=== PATIENT | female | born 1980 | race Caucasian/White ===

== ENCOUNTER → 2022-07-12 14:39 | Outpatient (BNVA) | payer BC, SELFPAY | PROVIDERS: PCP Family Medicine; Visit Provider Physician Assistant Surgical | DX: E66.9 Obesity, unspecified (principal) ==

== ENCOUNTER 2024-12-22 14:24 | Emergency (ER) | payer BC, SELFPAY ==
[2024-12-22 14:39] VITALS: BP 126/83; PULSE 91; RESP 18; TEMP 36.7; O2SAT 100; BMI 29.3
--- NOTE | 2024-12-22 14:49 | ED.GENADULT ---
HPI - General Adult General Chief complaint: Wound/Laceration Stated complaint: lac on toe Time Seen by Provider: 12/22/24 14:49 Source: patient Mode of arrival: ambulatory Limitations: no limitations History of Present Illness ED Provider: christopher munoz np HPI narrative: Patient is a 44 year old female who presents emergency department for evaluation. She was outdoors today, cutting up some onions to have burgers, knife accidentally slipped out of her hand dropping down to the floor sustaining accidental laceration to the right great toe inferior to the MTP. No active bleeding. No use of anticoagulants or known coagulation disorders. Unaware of the date of last tetanus vaccination Related Data Home Medications ?Medication ?Instructions ?Recorded ?Confirmed dextroamphetamine-amphetamine ER 5 5 mg PO DAILY 07/12/22 07/12/22 mg 24hr capsule,extend release (Adderall XR) escitalopram oxalate 5 mg tablet 5 mg PO DAILY 07/12/22 07/12/22 (Lexapro) lorazepam 0.5 mg tablet 1 mg PO DAILY PRN 07/12/22 07/12/22 Allergies Allergy/AdvReac Type Severity Reaction Status Date / Time Penicillins (PENICILLINS) Allergy Unknown UNKNOWN Verified 12/22/24 14:46 Review of Systems Review of Systems: Yes all other systems are reviewed and are negative [facility] Past Medical History Attestation statement: The following information was validated with the patient. Source: old records reviewed Surgical History Hx of unilateral salpingectomy Family History Family History (Updated 07/12/22 @ 15:25 by SUZANNE Fitzgerald) Mother Thyroid disease Kidney disease Father Parkinson disease Sister No problems noted. Sister No problems noted. Brother No problems noted. Social History Social History (Updated 07/12/22 @ 15:24 by SUZANNE Fitzgerald) Alcohol intake: current Alcohol intake frequency: a few times a week Patient Tobacco Use Status: Never used Tobacco Advance Directives: No Advance Directives Information Provided: Yes Do you have a plan to hurt others: No Plan Physical Exam ED Vital Signs: Vital Signs - 24 hr 12/22/24 14:39 12/22/24 17:09 Temperature 98.1 F 98.1 F Pulse Rate 91 91 Respiratory Rate 18 18 Blood Pressure 126/83 126/83 Pulse Oximetry 100 100 Oxygen Delivery Method Room Air Room Air BMI result Body Mass Index 29.3 Appearance: Alert.?Oriented to person, place and time. No acute distress.?Normal affect. CVS: Heart sounds normal. Normal heart rate and rhythm.? Pulses normal.?? Respiratory: No respiratory distress.? Lung sounds clear to auscultation bilaterally??? Skin: Skin warm and dry.? Normal skin color.? 3 cm linear laceration to the dorsal aspect of the right great toe, inferior to the MTP. No active bleeding.? Extremities: No extremity edema.? Neuro: Moves all extremities spontaneously. Sensation intact bilaterally. No focal neuro deficits. Ambulates with normal steady gait. Course Course Course Narrative: RME: 44-year-old female presents to ED for right big toe laceration caused by a knife. Bleeding controlled positive for deep laceration may need stitches. No bone exposure. Capillary refills intact Medications Administered Discontinued Medications Generic Name Dose Route Start Last Admin Trade Name Freq PRN Reason Stop Dose Admin Diphtheria/Tetanus/Acell Pertussis 0.5 ml 12/22/24 16:07 12/22/24 16:13 Diphth,Pertus(Acell),Tet Adult 0.5 Ml Syringe IM 12/22/24 16:08 0.5 ml .ONCE ONE Administration Lidocaine HCl 5 ml 12/22/24 16:07 12/22/24 16:12 Lidocaine Hcl 1 % Mpf 5 Ml Vial SUBCUT 12/22/24 16:08 5 ml ONCE ONE Administration Procedures Laceration Laceration 1: Site: other (Great toe) Side (If applicable): right Size (cm): 3 Description: linear Depth: simple, single layer Local Anesthetic: lidocaine 1% Amount of anesthesia used (mL): 2 Pre-repair: wound explored and irrigated extensively Skin layer closed with: nylon Size (cm): 4-0 Number of sutures: 5 Medical Decision Making Medical Decision Making MDM Narrative: Patient is a female who presents emergency department for evaluation of accidental laceration to the right great toe as per HPI and PE portion of this note. Laceration repair under aseptic technique as per procedural portion of this note with sutures. Discussed indication for improvement hemostasis of wound and healing time. Patient acknowledged understanding. Wound with sterile saline irrigation draped in usual fashion with the use of chlorhexidine. Closure with 5 simple intermittent sutures using 4-0 nylon. Patient tolerated well, no complications. Discussed reasons to return including fever or chills, erythema, swelling, pain, purulence or odor from the wound. Advised to return for suture removal in 10-14 days. tetanus vaccination updated. Differential Diagnosis Differential Diagnoses: The differential diagnosis associated with the presentation includes ( laceration, retained foreign body, tendon or ligamentous injury, active bleeding) Prescription Management I considered prescription management with: Pain Medication Discharge Plan Discharge Clinical Impression: Laceration Patient Disposition: Home, Self-Care Instructions: Laceration (ED) Additional Instructions: You may clean the area gently slowly with warm water and mild non scented soap over the next 2 days, dry the area afterwards, otherwise should remain dry until removed.? Avoid prolonged soaking in water such as swimming, soaking in the bath. Sutures will need to be removed in 10-14 days, you may return back to emergency department or follow-up with your primary care doctor for removal Tetanus vaccine updated today Return with any new or worsening symptoms or concerns such as increasing pain, redness, swelling, pus-like discharge, fevers or chills. Prescriptions: No Action dextroamphetamine-amphetamine [Adderall XR] 5 mg capsule,extended release 24hr 5 mg PO DAILY lorazepam 0.5 mg tablet 1 mg PO DAILY PRN escitalopram oxalate [Lexapro] 5 mg tablet 5 mg PO DAILY Referrals: Soto Del Rio MD [Primary Care Provider, Internal Medicine] Interventions: ED Discharge Assessment Last Done: 12/22/24 17:09 Discharge Date/Time: 12/22/24 17:14 Print Language: Kazakh
[2024-12-22] MEDS: Lidocaine HCl 1 % MPF 5 ML VIAL SUBCUT (16:12)
[2024-12-22] MEDS: Diphth,Pertus(ACell),Tet Adult 0.5 ML SYRINGE IM (16:13)
[2024-12-22 17:09] VITALS: BP 126/83; PULSE 91; RESP 18; TEMP 36.7; O2SAT 100
== END 2024-12-22 17:14 | disposition home or self-care (01) ==
PROVIDERS: Emergency Provider Emergency Medicine; PCP Family Medicine
DX: S91.111A Laceration without foreign body of right great toe without damage to nail, initial encounter (principal); M79.671 Pain in right foot; Y93.9 Activity, unspecified; W26.9XXA Contact with unspecified sharp object(s), initial encounter; Y92.9 Unspecified place or not applicable; Y99.8 Other external cause status; Z79.899 Other long term (current) drug therapy; Z23 Encounter for immunization
CPT/HCPCS: 12002; 90471; 90715; 99282; 99284; J2003